=== PATIENT | female | born 1930 | race African-American/Black ===

== ENCOUNTER 2017-07-19 11:54 | Inpatient (IN) ==
[2017-07-19] MEDS ORDERED: hydrALAZINE 20 MG/1 ML VIAL ONE (12:05)
[2017-07-19] MEDS ORDERED: SODIUM CHLORIDE 0.9% 1,000 ML IV STA (12:20)
[2017-07-19 12:27] LABS: ABG Base Excess -4.5 MMOL/L (-2.5-2.5); ABG HCO3 20.7 MMOL/L (20-26); ABG Oxygen Saturation 98.6 % (95-100); ABG PCO2 42.5 MM HG (35-48); ABG PH 7.314 (7.35-7.45); ABG TCO2 19.3 MMOL/L (23-27)
[2017-07-19 12:29] LABS: Basophils % 0.1 % (0.0-0.8); Hematocrit 36.5 VOL% (35.7-47.0); Hemoglobin 12.5 GM/DL (12.0-16.0); Immature Granulocytes % 0.6 %; Immature Granulocytes Absolute 0.11 #; Lymphocytes # 1.4 10*3/uL (1.4-4.0); Lymphocytes % 7.3 % (21.3-54.2); Mean Corpuscular HGB Conc 34.2 GM/DL (32-36); Mean Corpuscular Hemoglobin 32 PG (27-34); Mean Corpuscular Volume 94.3 FL (87-102); Mean Platelet Volume 12.6 FL (9.6-12.0); Monocytes # 1.2 10*3/uL (0.11-0.8); Neutrophils # 16.7 10*3/uL (1.4-7.4); Platelet Count 182 T/CUMM (130-400); Red Blood Count 3.87 MC/CUMM (3.8-5.5); Red Cell Distribution Width 12.3 % (9.3-17.3); White Blood Count 19.4 T/CUMM (4-12)
[2017-07-19 12:40] LABS: PT Patient Result 10.7 SECS
[2017-07-19] MEDS ORDERED: hydrALAZINE 20 MG/1 ML VIAL IV STA ×2 (12:41→12:44)
[2017-07-19 12:48] LABS: Band Neutrophils 1 % (0-10); Lymphocytes 5 % (20-55); Segmented Neutrophils 90 % (50-85); Total Cells Counted 100
[2017-07-19 12:59] LABS: Albumin 2.9 G/DL (3.4-5.0); Bilirubin,Total 0.6 MG/DL (0.2-1.0); Calcium 8.5 MG/DL (8.5-10.1); Osmolality,Calculated 316.7 MOS/KG (273-304); Potassium 3.2 MMOL/L (3.5-5.1); Thyroid Stimulating Hormone 1.12 uIU/ml (0.358-3.74); Total Protein 7.3 G/DL (6.4-8.3)
[2017-07-19 13:08] LABS: Apearance,Urine Slightly Hazy (Clear); Glucose,Urine (UA) 150 mg/dL (Negative); Urine Color Yellow (Yellow); Urine Specific Gravity 1.005 (1.001-1.035)
[2017-07-19 13:09] LABS: Bilirubin,Urine Negative (Negative); Blood, Urine Small mg/dL (Negative); Ketones,Urine Negative (Negative); Nitrite,Urine Negative (Negative); Urine Urobilinogen 0.2 EU/DL (0.2-1.0)
[2017-07-19 13:25] LABS: WBC,Urine Rare /HPF (0-6)
[2017-07-19 13:26] LABS: Amorphous Crystals,Urine Few /HPF (Few)
[2017-07-19 13:28] LABS: Protein,Urine >=500 MG/DL
[2017-07-19 13:33] LABS: Barbiturates Screen,Urine Negative (Negative); Benzodiazepines Screen,Urine Positive (Negative); Cannabinoid Screen,Urine Negative (Negative); Opiate Screen,Urine Negative (Negative); Phencyclidine Screen,Urine Negative (Negative)
[2017-07-19] MEDS ORDERED: INSULIN REGULAR 100 UNIT/ML IV STA (13:41)
[2017-07-19] MEDS ORDERED: INSULIN REGULAR 100 UNIT/ML ONE (13:45)
[2017-07-19] MEDS ORDERED: ALBUTEROL 2.5 MG/3 ML NEB RESP TX PRN (15:40)
[2017-07-19] MEDS ORDERED: MAGNESIUM SULF RIDER 4 GM in PREMIX 1 EACH IV PRN (15:46)
[2017-07-19] MEDS ORDERED: MAGNESIUM SULF RIDER 2 GM in PREMIX 1 EACH IV PRN (15:46)
[2017-07-19] MEDS ORDERED: DEXTROSE 50% 25 GM/50 ML VIAL IV PRN ×2 (15:46)
[2017-07-19] MEDS ORDERED: INSULIN REGULAR 100 UNIT/ML IV ONE (15:53)
[2017-07-19] MEDS ORDERED: SODIUM CHLORIDE 0.9% IV PRN (15:53)
[2017-07-19] MEDS ORDERED: SODIUM BICARB INJ 100 MEQ in STERILE WATER INJ 400 ML IV PRN (15:53)
[2017-07-19] MEDS ORDERED: SODIUM PHOSPHATE IV PRN (15:53)
[2017-07-19] MEDS ORDERED: INSULIN REGULAR DRIP 100 ML IV SCH (16:00)
[2017-07-19] MEDS ORDERED: PANTOPRAZOLE 40 MG VIAL IV SCH (16:00)
[2017-07-19 16:07] LABS: ABG Base Excess -4.6 MMOL/L (-2.5-2.5); ABG HCO3 19.2 MMOL/L (20-26); ABG Oxygen Saturation 98.7 % (95-100); ABG PCO2 31.9 MM HG (35-48); ABG PH 7.398 (7.35-7.45); ABG PO2 159.7 MM HG (80-95); ABG TCO2 20.2 MMOL/L (23-27); Allen Test Positive
[2017-07-19 16:16] LABS: Risk Ratio 3.55; VLDL CHOLESTEROL 29.2 MG/DL
[2017-07-19] MEDS: niCARdipine INJ 25 MG in SODIUM CHLORIDE 0.9% 240 ML IV PRN (17:40)
[2017-07-19] MEDS: CLINDAMYCIN INJ 600 MG in PREMIX 1 EACH IV SCH (18:00)
[2017-07-19] MEDS ORDERED: cefTRIAXone 2,000 MG in SYRINGE 1 EACH IV SCH (18:00)
[2017-07-19 18:02] LABS: Calcium 8.5 MG/DL (8.5-10.1); Osmolality,Calculated 317.4 MOS/KG (273-304); Potassium 3.1 MMOL/L (3.5-5.1)
[2017-07-19] MEDS: POTASSIUM CHLORIDE RIDER 10 MEQ in PREMIX 1 EACH IV PRN ×4 (18:03→21:08)
[2017-07-19 18:04] LABS: Lactic Acid 1.5 MMOL/L (0.4-2.0)
[2017-07-19 18:28] LABS: CKMB % 0.6 %; Troponin I Only 0.915 NG/ML (0.00-0.045)
[2017-07-19] MEDS ORDERED: SODIUM CHLOR 0.9% KCL 20 MEQ 20 MEQ/1,000 ML BAG IV SCH (20:00)
[2017-07-19] MEDS ORDERED: POTASSIUM CHLORIDE 20 MEQ/15 ML UDCUP PO ONE (20:00)
[2017-07-19 21:13] LABS: Calcium 8.5 MG/DL (8.5-10.1); Osmolality,Calculated 313.1 MOS/KG (273-304); Potassium 3.7 MMOL/L (3.5-5.1)
[2017-07-19 21:30] LABS: CKMB % 0.6 %; Troponin I Only 0.944 NG/ML (0.00-0.045)
[2017-07-20] MEDS ORDERED: POTASSIUM CHLORIDE INJ 40 MEQ in SODIUM CHLORIDE 0.9% 380 ML IV SCH (01:00)
[2017-07-20] MEDS: CLINDAMYCIN INJ 600 MG in PREMIX 1 EACH IV SCH ×2 (01:18→10:59)
[2017-07-20 01:53] LABS: Calcium 8.7 MG/DL (8.5-10.1); Osmolality,Calculated 307.7 MOS/KG (273-304); Potassium 3.3 MMOL/L (3.5-5.1)
[2017-07-20 04:14] LABS: ABG Base Excess -1.4 MMOL/L (-2.5-2.5); ABG HCO3 19.7 MMOL/L (20-26); ABG Oxygen Saturation 92.4 % (95-100); ABG PH 7.532 (7.35-7.45); ABG PO2 61.6 MM HG (80-95); ABG TCO2 20.4 MMOL/L (23-27)
[2017-07-20 04:22] LABS: Basophils % 0.2 % (0.0-0.8); Hematocrit 35.8 VOL% (35.7-47.0); Hemoglobin 12.1 GM/DL (12.0-16.0); Immature Granulocytes % 0.5 %; Immature Granulocytes Absolute 0.09 #; Lymphocytes # 2.1 10*3/uL (1.4-4.0); Lymphocytes % 11.1 % (21.3-54.2); Mean Corpuscular HGB Conc 33.8 GM/DL (32-36); Mean Corpuscular Hemoglobin 31 PG (27-34); Mean Corpuscular Volume 92.5 FL (87-102); Mean Platelet Volume 12.7 FL (9.6-12.0); Monocytes # 1.6 10*3/uL (0.11-0.8); Monocytes % 8.5 % (1.7-12.7); Neutrophils # 15.4 10*3/uL (1.4-7.4); Neutrophils % 79.7 % (38.7-73.9); Platelet Count 190 T/CUMM (130-400); Red Blood Count 3.87 MC/CUMM (3.8-5.5); Red Cell Distribution Width 12.2 % (9.3-17.3); White Blood Count 19.3 T/CUMM (4-12)
[2017-07-20] MEDS ORDERED: DEXT 5% NACL 0.9% KCL 20 MEQ 20 MEQ/1,000 ML BAG IV SCH (04:30)
[2017-07-20 04:56] LABS: Calcium 8.6 MG/DL (8.5-10.1); Osmolality,Calculated 305.6 MOS/KG (273-304); Potassium 3.9 MMOL/L (3.5-5.1)
[2017-07-20 05:01] LABS: Alanine Aminotransferase 49 U/L (13-56); Albumin 2.2 G/DL (3.4-5.0); Alkaline Phosphatase 97 U/L (45-117); Aspartate Amino Transferase 95 U/L (0-37); Bilirubin,Direct < 0.100 MG/DL (0.0-0.20); Bilirubin,Indirect 0.7 MG/DL (0.0-1.0); Total Protein 6.3 G/DL (6.4-8.3)
[2017-07-20] MEDS: niCARdipine INJ 25 MG in SODIUM CHLORIDE 0.9% 240 ML IV PRN (05:07)
[2017-07-20 05:25] LABS: Band Neutrophils 3 % (0-10); Lymphocytes 9 % (20-55); Segmented Neutrophils 82 % (50-85); Total Cells Counted 100
[2017-07-20 05:26] LABS: Giant Platelets Few; Hypochromasia 1+; Platelet Estimate Normal
[2017-07-20 06:11] LABS: CKMB % 0.6 %; Troponin I Only 0.784 NG/ML (0.00-0.045)
[2017-07-20 06:33] LABS: Calcium 8.7 MG/DL (8.5-10.1); Osmolality,Calculated 302.6 MOS/KG (273-304); Potassium 4.7 MMOL/L (3.5-5.1)
[2017-07-20] MEDS ORDERED: SODIUM BICARB INJ 100 MEQ in DEXTROSE 5% 1,000 ML IV SCH (08:00)
[2017-07-20] MEDS ORDERED: VALPROIC ACID INJ 500 MG in SODIUM CHLORIDE 0.9% 100 ML IV SCH (09:00)
[2017-07-20] MEDS ORDERED: LACOSAMIDE INJ 150 MG in SODIUM CHLORIDE 0.9% 50 ML IV SCH (10:00)
[2017-07-20 11:16] LABS: Calcium 8.3 MG/DL (8.5-10.1); Osmolality,Calculated 304.4 MOS/KG (273-304); Potassium 3.4 MMOL/L (3.5-5.1)
[2017-07-20 12:13] VITALS: BP 160/57
[2017-07-20] MEDS ORDERED: ALBUTEROL/IPRATROPIUM 3 ML NEB RESP TX SCH (13:00)
[2017-07-21] MEDS ORDERED: ASPIRIN EC 81 MG TABLET PO SCH (09:00)
== END 2017-07-20 11:50 | disposition hospice, home (50) | DRG 637 ==
LOC: EDUNIT# → N.ED 11:54 → N.EDINP 14:44 → N.ICU 16:54
PROVIDERS: ADMIT Hospitalist; ATTEND Hospitalist

== ENCOUNTER 2017-12-03 16:43 | Inpatient (IN) ==
[2017-12-03 18:46] LABS: Basophils % 0.3 % (0.0-0.8); Eosinophils # 0.1 10*3/uL (0.0-0.87); Eosinophils % 1.8 % (0.00-10.9); Hematocrit 35.5 VOL% (35.7-47.0); Hemoglobin 10.8 GM/DL (12.0-16.0); Immature Granulocytes % 0.7 %; Immature Granulocytes Absolute 0.05 #; Lymphocytes # 2.4 10*3/uL (1.4-4.0); Lymphocytes % 32.9 % (21.3-54.2); Mean Corpuscular HGB Conc 30.4 GM/DL (32-36); Mean Corpuscular Hemoglobin 31 PG (27-34); Mean Corpuscular Volume 102.6 FL (87-102); Monocytes # 0.6 10*3/uL (0.11-0.8); Monocytes % 8.6 % (1.7-12.7); Neutrophils # 4.1 10*3/uL (1.4-7.4); Neutrophils % 55.7 % (38.7-73.9); Platelet Count 214 T/CUMM (130-400); Red Blood Count 3.46 MC/CUMM (3.8-5.5); Red Cell Distribution Width 13.6 % (9.3-17.3); White Blood Count 7.4 T/CUMM (4-12)
[2017-12-03 19:25] LABS: Alanine Aminotransferase 19 U/L (13-56); Albumin 2.9 G/DL (3.4-5.0); Alkaline Phosphatase 96 U/L (45-117); Aspartate Amino Transferase 19 U/L (0-37); Bilirubin,Total < 0.39 MG/DL (0.2-1.0); Blood Urea Nitrogen 71 MG/DL (7-18); Calcium 9.4 MG/DL (8.5-10.1); Glucose 229 MG/DL (74-106); Osmolality,Calculated 334.3 MOS/KG (273-304); Potassium 4.4 MMOL/L (3.5-5.1); Sodium 155 MMOL/L (136-145); Total Protein 7.8 G/DL (6.4-8.3)
[2017-12-03] MEDS: SODIUM CHLORIDE 0.45% 1,000 ML IV SCH (21:15)
[2017-12-03] MEDS: ENOXAPARIN 30 MG/0.3 ML SYRINGE SUBCUT SCH (21:32)
[2017-12-03] MEDS: ONDANSETRON 4 MG/2 ML VIAL IV PRN (21:33)
[2017-12-03] MEDS ORDERED: DEXTROSE 50% 25 GM/50 ML VIAL IV PRN (21:55)
[2017-12-03] MEDS ORDERED: GLUCAGON 1 MG VIAL IM PRN (21:55)
[2017-12-03] MEDS: INSULIN REGULAR 100 UNIT/ML SUBCUT SCH (22:30)
[2017-12-04 05:34] LABS: Basophils % 0.2 % (0.0-0.8); Eosinophils # 0.2 10*3/uL (0.0-0.87); Hematocrit 31.5 VOL% (35.7-47.0); Hemoglobin 9.3 GM/DL (12.0-16.0); Immature Granulocytes % 0.8 %; Immature Granulocytes Absolute 0.05 #; Lymphocytes # 2.3 10*3/uL (1.4-4.0); Lymphocytes % 33.9 % (21.3-54.2); Mean Corpuscular HGB Conc 29.5 GM/DL (32-36); Mean Corpuscular Hemoglobin 30 PG (27-34); Mean Corpuscular Volume 102.6 FL (87-102); Monocytes # 0.6 10*3/uL (0.11-0.8); Monocytes % 9.6 % (1.7-12.7); Neutrophils # 3.5 10*3/uL (1.4-7.4); Neutrophils % 52.5 % (38.7-73.9); Platelet Count 196 T/CUMM (130-400); Red Blood Count 3.07 MC/CUMM (3.8-5.5); Red Cell Distribution Width 13.9 % (9.3-17.3); White Blood Count 6.7 T/CUMM (4-12)
[2017-12-04] MEDS: SODIUM CHLORIDE 0.45% 1,000 ML IV SCH ×2 (06:04→16:12)
[2017-12-04 06:09] LABS: Albumin 2.5 G/DL (3.4-5.0); Bilirubin,Total 0.5 MG/DL (0.2-1.0); Calcium 9.7 MG/DL (8.5-10.1); Osmolality,Calculated 324.4 MOS/KG (273-304); Potassium 3.9 MMOL/L (3.5-5.1); Total Protein 7.4 G/DL (6.4-8.3)
[2017-12-04] MEDS: INSULIN REGULAR 100 UNIT/ML SUBCUT SCH ×4 (07:59→20:51)
[2017-12-04] MEDS: CARVEDILOL 6.25 MG TABLET NG SCH ×2 (09:30→17:27)
[2017-12-04] MEDS: DONEPEZIL 5 MG TABLET PO SCH (09:30)
[2017-12-04] MEDS: CITALOPRAM 20 MG TABLET PEG SCH (09:30)
[2017-12-04] MEDS: cefTRIAXone 1,000 MG in SYRINGE 1 EACH IV SCH (12:19)
[2017-12-04] MEDS: CLINDAMYCIN INJ 600 MG in PREMIX 1 EACH IV SCH ×2 (12:19→20:43)
[2017-12-04] MEDS: AZITHROMYCIN INJ 500 MG in SODIUM CHLORIDE 0.9% 250 ML IV SCH (13:29)
[2017-12-04 18:04] LABS: Apearance,Urine CLOUDY (Clear); Bilirubin,Urine Negative (Negative); Blood, Urine Negative (Negative); Glucose,Urine (UA) Negative (Negative); Ketones,Urine Negative (Negative); Nitrite,Urine Negative (Negative); Protein,Urine 100 MG/DL; RBC,Urine 3 /HPF (0-4); Urine Color Yellow (Yellow); Urine Specific Gravity 1.012 (1.001-1.035); Urine Urobilinogen < 2.0 EU/DL (0.2-1.0); WBC,Urine 154 /HPF (0-6)
[2017-12-04] MEDS: ENOXAPARIN 30 MG/0.3 ML SYRINGE SUBCUT SCH (20:50)
[2017-12-05] MEDS: SODIUM CHLORIDE 0.45% 1,000 ML IV SCH ×3 (00:30→18:35)
[2017-12-05 05:29] LABS: Basophils % 0.1 % (0.0-0.8); Eosinophils # 0.2 10*3/uL (0.0-0.87); Eosinophils % 1.7 % (0.00-10.9); Hematocrit 26.8 VOL% (35.7-47.0); Hemoglobin 8.5 GM/DL (12.0-16.0); Immature Granulocytes % 1.6 %; Immature Granulocytes Absolute 0.14 #; Lymphocytes # 3.1 10*3/uL (1.4-4.0); Mean Corpuscular HGB Conc 31.7 GM/DL (32-36); Mean Corpuscular Hemoglobin 31 PG (27-34); Mean Corpuscular Volume 96.8 FL (87-102); Mean Platelet Volume 12.5 FL (9.6-12.0); Monocytes # 0.7 10*3/uL (0.11-0.8); Monocytes % 8.3 % (1.7-12.7); Neutrophils # 4.6 10*3/uL (1.4-7.4); Neutrophils % 52.3 % (38.7-73.9); Platelet Count 178 T/CUMM (130-400); Red Blood Count 2.77 MC/CUMM (3.8-5.5); Red Cell Distribution Width 13.2 % (9.3-17.3); White Blood Count 8.7 T/CUMM (4-12)
[2017-12-05] MEDS: CLINDAMYCIN INJ 600 MG in PREMIX 1 EACH IV SCH ×2 (05:34→13:40)
[2017-12-05 05:54] LABS: Calcium 8.2 MG/DL (8.5-10.1); Osmolality,Calculated 300.3 MOS/KG (273-304); Potassium 3.6 MMOL/L (3.5-5.1)
[2017-12-05] MEDS: ONDANSETRON 4 MG/2 ML VIAL IV PRN ×2 (06:06→12:06)
[2017-12-05] MEDS: INSULIN REGULAR 100 UNIT/ML SUBCUT SCH ×4 (07:49→20:41)
[2017-12-05] MEDS: CARVEDILOL 6.25 MG TABLET NG SCH ×2 (07:50→17:31)
[2017-12-05] MEDS: DONEPEZIL 5 MG TABLET PO SCH (08:04)
[2017-12-05] MEDS: CITALOPRAM 20 MG TABLET PEG SCH (08:04)
[2017-12-05] MEDS: cefTRIAXone 1,000 MG in SYRINGE 1 EACH IV SCH (08:04)
[2017-12-05] MEDS: AZITHROMYCIN INJ 500 MG in SODIUM CHLORIDE 0.9% 250 ML IV SCH (08:05)
[2017-12-05] MEDS: ENOXAPARIN 30 MG/0.3 ML SYRINGE SUBCUT SCH (20:38)
[2017-12-06] MEDS: SODIUM CHLORIDE 0.45% 1,000 ML IV SCH ×3 (02:45→22:40)
[2017-12-06 06:45] LABS: Calcium 7.9 MG/DL (8.5-10.1); Osmolality,Calculated 294.4 MOS/KG (273-304); Potassium 3.7 MMOL/L (3.5-5.1)
[2017-12-06] MEDS: INSULIN REGULAR 100 UNIT/ML SUBCUT SCH ×4 (09:25→20:41)
[2017-12-06] MEDS: DONEPEZIL 5 MG TABLET PO SCH (09:26)
[2017-12-06] MEDS: CITALOPRAM 20 MG TABLET PEG SCH (09:26)
[2017-12-06] MEDS: CARVEDILOL 6.25 MG TABLET NG SCH ×2 (09:26→16:54)
[2017-12-06] MEDS: AZITHROMYCIN INJ 500 MG in SODIUM CHLORIDE 0.9% 250 ML IV SCH (09:27)
[2017-12-06] MEDS: cefTRIAXone 2,000 MG in SYRINGE 1 EACH IV SCH (09:27)
[2017-12-06] MEDS: ENOXAPARIN 30 MG/0.3 ML SYRINGE SUBCUT SCH (20:05)
[2017-12-07] MEDS: SODIUM CHLORIDE 0.45% 1,000 ML IV SCH ×2 (07:07→19:32)
[2017-12-07] MEDS: CITALOPRAM 20 MG TABLET PEG SCH (09:54)
[2017-12-07] MEDS: CARVEDILOL 6.25 MG TABLET NG SCH ×2 (09:54→18:20)
[2017-12-07] MEDS: AZITHROMYCIN INJ 500 MG in SODIUM CHLORIDE 0.9% 250 ML IV SCH (09:54)
[2017-12-07] MEDS: DONEPEZIL 5 MG TABLET PO SCH (09:54)
[2017-12-07] MEDS: INSULIN REGULAR 100 UNIT/ML SUBCUT SCH ×4 (09:55→21:35)
[2017-12-07] MEDS: cefTRIAXone 2,000 MG in SYRINGE 1 EACH IV SCH (09:55)
[2017-12-07] MEDS: ONDANSETRON 4 MG/2 ML VIAL IV PRN (12:32)
[2017-12-07] MEDS: ENOXAPARIN 30 MG/0.3 ML SYRINGE SUBCUT SCH (20:15)
[2017-12-08] MEDS: SODIUM CHLORIDE 0.45% 1,000 ML IV SCH ×3 (03:35→15:56)
[2017-12-08] MEDS: INSULIN REGULAR 100 UNIT/ML SUBCUT SCH ×4 (08:25→20:36)
[2017-12-08] MEDS: DONEPEZIL 5 MG TABLET PO SCH (09:39)
[2017-12-08] MEDS: CARVEDILOL 6.25 MG TABLET NG SCH ×2 (09:39→16:46)
[2017-12-08] MEDS: CITALOPRAM 20 MG TABLET PEG SCH (09:39)
[2017-12-08] MEDS: AZITHROMYCIN INJ 500 MG in SODIUM CHLORIDE 0.9% 250 ML IV SCH (09:40)
[2017-12-08] MEDS: cefTRIAXone 2,000 MG in SYRINGE 1 EACH IV SCH (10:52)
[2017-12-08] MEDS: ENOXAPARIN 30 MG/0.3 ML SYRINGE SUBCUT SCH (20:36)
[2017-12-09] MEDS: SODIUM CHLORIDE 0.45% 1,000 ML IV SCH ×3 (00:03→23:26)
[2017-12-09] MEDS: INSULIN REGULAR 100 UNIT/ML SUBCUT SCH ×4 (07:27→20:41)
[2017-12-09] MEDS: AZITHROMYCIN INJ 500 MG in SODIUM CHLORIDE 0.9% 250 ML IV SCH (09:15)
[2017-12-09] MEDS: CITALOPRAM 20 MG TABLET PEG SCH (09:23)
[2017-12-09] MEDS: CARVEDILOL 6.25 MG TABLET NG SCH ×2 (09:23→17:36)
[2017-12-09] MEDS: DONEPEZIL 5 MG TABLET PO SCH (09:24)
[2017-12-09 09:50] LABS: Basophils % 0.1 % (0.0-0.8); Eosinophils # 0.3 10*3/uL (0.0-0.87); Eosinophils % 4.1 % (0.00-10.9); Hematocrit 24.4 VOL% (35.7-47.0); Hemoglobin 7.7 GM/DL (12.0-16.0); Immature Granulocytes % 1.1 %; Immature Granulocytes Absolute 0.08 #; Lymphocytes # 2.1 10*3/uL (1.4-4.0); Lymphocytes % 29.9 % (21.3-54.2); Mean Corpuscular HGB Conc 31.6 GM/DL (32-36); Mean Corpuscular Hemoglobin 31 PG (27-34); Mean Corpuscular Volume 98.4 FL (87-102); Mean Platelet Volume 12.6 FL (9.6-12.0); Monocytes # 0.6 10*3/uL (0.11-0.8); Monocytes % 7.7 % (1.7-12.7); Neutrophils # 4.1 10*3/uL (1.4-7.4); Neutrophils % 57.1 % (38.7-73.9); Platelet Count 158 T/CUMM (130-400); Red Blood Count 2.48 MC/CUMM (3.8-5.5); Red Cell Distribution Width 13.3 % (9.3-17.3); White Blood Count 7.2 T/CUMM (4-12)
[2017-12-09 10:00] LABS: INR 0.9; PT Patient Result 9.5 SECS
[2017-12-09 10:15] LABS: Calcium 8.2 MG/DL (8.5-10.1); Osmolality,Calculated 287.5 MOS/KG (273-304); Potassium 4.5 MMOL/L (3.5-5.1); Prealbumin 12.7 MG/DL (20-40)
[2017-12-09] MEDS: ONDANSETRON 4 MG/2 ML VIAL IV PRN (10:19)
[2017-12-09] MEDS: cefTRIAXone 2,000 MG in SYRINGE 1 EACH IV SCH (10:19)
[2017-12-09] MEDS ORDERED: SODIUM CHLORIDE 0.9% 1,000 ML IV PRN (12:16)
[2017-12-10] MEDS: SODIUM CHLORIDE 0.45% 1,000 ML IV SCH ×2 (01:16→03:34)
[2017-12-10 04:58] LABS: Basophils % 0.1 % (0.0-0.8); Eosinophils # 0.3 10*3/uL (0.0-0.87); Eosinophils % 2.4 % (0.00-10.9); Hematocrit 32.7 VOL% (35.7-47.0); Hemoglobin 10.8 GM/DL (12.0-16.0); Immature Granulocytes % 0.7 %; Immature Granulocytes Absolute 0.07 #; Lymphocytes % 19.2 % (21.3-54.2); Mean Corpuscular Hemoglobin 31 PG (27-34); Mean Corpuscular Volume 93.4 FL (87-102); Monocytes # 0.7 10*3/uL (0.11-0.8); Monocytes % 7.2 % (1.7-12.7); Neutrophils # 7.3 10*3/uL (1.4-7.4); Neutrophils % 70.4 % (38.7-73.9); Platelet Count 154 T/CUMM (130-400); Red Cell Distribution Width 14.6 % (9.3-17.3); White Blood Count 10.3 T/CUMM (4-12)
[2017-12-10 05:25] LABS: Calcium 8.2 MG/DL (8.5-10.1); Osmolality,Calculated 285.5 MOS/KG (273-304); Potassium 4.5 MMOL/L (3.5-5.1)
[2017-12-10 05:31] LABS: Eosinophils 2 % (0-10); Hypochromasia 1+; Lymphocytes 17 % (20-55); Nucleated Red Blood Cells 1 (0-5); Platelet Estimate Normal; Segmented Neutrophils 75 % (50-85); Total Cells Counted 100
[2017-12-10] MEDS ORDERED: ZINC OXIDE PASTE 113 GM TUBE TOP PRN (05:53)
[2017-12-10] MEDS: INSULIN REGULAR 100 UNIT/ML SUBCUT SCH ×2 (09:50→12:09)
[2017-12-10] MEDS: DONEPEZIL 5 MG TABLET PO SCH (10:44)
[2017-12-10] MEDS: CITALOPRAM 20 MG TABLET PEG SCH (10:44)
[2017-12-10] MEDS: CARVEDILOL 6.25 MG TABLET NG SCH (10:44)
[2017-12-10] MEDS: cefTRIAXone 2,000 MG in SYRINGE 1 EACH IV SCH (10:45)
[2017-12-10 11:40] VITALS: BP 176/76
== END 2017-12-10 13:23 | disposition home health service (06) | DRG 683 ==
LOC: N.ED 16:43 → N.EDINP 20:31 → SUATTDRO 20:32 → N.2E 21:26
PROVIDERS: ADMIT Internal Medicine

== ENCOUNTER 2019-06-02 23:55 | Inpatient (IN) ==
[2019-06-03] MEDS ORDERED: SODIUM CHLORIDE 0.9% 500 ML IV STA (00:13)
[2019-06-03] MEDS ORDERED: AMPICILLIN/SULBACTAM 3,000 MG in SODIUM CHLORIDE 0.9% 100 ML IV STA (00:13)
[2019-06-03] MEDS ORDERED: ALBUTEROL NEB SOLN 5 MG/ML 20 ML/BOTTLE CONT NEB SCH (00:30)
[2019-06-03] MEDS ORDERED: AMPICILLIN/SULBACTAM 3,000 MG VIAL ONE (00:35)
[2019-06-03 01:29] LABS: Immature Granulocytes % 4.5 %; Immature Granulocytes Absolute 0.25 #; Lymphocytes # 1.3 10*3/uL (1.4-4.0); Mean Corpuscular Volume 112.4 FL (87-102); Mean Platelet Volume 12.5 FL (9.6-12.0); NRBC # 0.06 10*3/uL; Neutrophils % 66.5 % (38.7-73.9); Platelet Count 187 T/CUMM (130-400); Red Blood Count 1.78 MC/CUMM (3.8-5.5); Red Cell Distribution Width 13.8 % (9.3-17.3); White Blood Count 5.5 T/CUMM (4-12)
[2019-06-03 01:35] LABS: Hemoglobin 5.8 GM/DL (12.0-16.0)
[2019-06-03 01:49] LABS: Alanine Aminotransferase 49 U/L (13-56); Albumin 1.9 G/DL (3.4-5.0); Alkaline Phosphatase 68 U/L (45-117); Aspartate Amino Transferase 49 U/L (0-37); Bilirubin,Total < 0.39 MG/DL (0.2-1.0); Blood Urea Nitrogen 182 MG/DL (7-18); Calcium 9.8 MG/DL (8.5-10.1); Estimated Glom Filtration Rate 7 ML/MIN; Glucose 269 MG/DL (74-106)
[2019-06-03 02:07] LABS: Hematocrit 18.9 VOL% (35.7-47.0); Immature Granulocytes Absolute 0.26 #; Lymphocytes # 1.8 10*3/uL (1.4-4.0); Lymphocytes % 28.3 % (21.3-54.2); Mean Corpuscular HGB Conc 29.6 GM/DL (32-36); Mean Corpuscular Volume 113.2 FL (87-102); Mean Platelet Volume 12.9 FL (9.6-12.0); Monocytes % 6.6 % (1.7-12.7); NRBC # 0.06 10*3/uL; Neutrophils % 61.1 % (38.7-73.9); Platelet Count 184 T/CUMM (130-400); Red Blood Count 1.67 MC/CUMM (3.8-5.5); Red Cell Distribution Width 13.7 % (9.3-17.3); White Blood Count 6.5 T/CUMM (4-12)
[2019-06-03 02:11] LABS: Hemoglobin 5.6 GM/DL (12.0-16.0)
[2019-06-03 02:18] LABS: Apearance,Urine Slightly Hazy (Clear); Bacteria,Urine Occasional /HPF (Few); Bilirubin,Urine Negative (Negative); Blood, Urine Negative (Negative); Glucose,Urine (UA) Negative (Negative); Hyaline Casts,Urine 3 /LPF (0-3); Ketones,Urine Negative (Negative); Mucus,Urine Occasional /LPF (Occasional); Nitrite,Urine Negative (Negative); Protein,Urine 100 MG/DL; RBC,Urine 1 /HPF (0-4); Uric Acid Crystals,Urine Occasional /HPF (<1); Urine Color Yellow (Yellow); Urine Specific Gravity 1.012 (1.001-1.035); Urine Urobilinogen < 2.0 EU/DL (0.2-1.0); WBC,Urine 4 /HPF (0-6)
[2019-06-03] MEDS ORDERED: SODIUM CHLORIDE 0.9% 1,000 ML IV STA (02:30)
[2019-06-03 03:46] LABS: Band Neutrophils 2 % (0-10); Lymphocytes 23 % (20-55); Segmented Neutrophils 68 % (50-85); Total Cells Counted 100
[2019-06-03 03:47] LABS: Anisocytosis 1+; Platelet Estimate Normal
[2019-06-03 03:50] LABS: Band Neutrophils 1 % (0-10); Lymphocytes 27 % (20-55); Myelocytes 1 %; Nucleated Red Blood Cells 1 (0-5); Segmented Neutrophils 64 % (50-85); Total Cells Counted 100
[2019-06-03 03:51] LABS: Anisocytosis 1+; Platelet Estimate Normal
[2019-06-03 04:28] LABS: INR 0.9; PT Patient Result 9.8 SECS (9.6-12.2); Partial Thromboplastin Time 28.7 SECS (20.8-36.0)
[2019-06-03] MEDS ORDERED: ACETAMINOPHEN 325 MG TABLET PEG PRN (05:54)
[2019-06-03] MEDS ORDERED: GLUCAGON 1 MG VIAL IM PRN (05:54)
[2019-06-03] MEDS ORDERED: SODIUM CHLORIDE 0.9% 1,000 ML IV PRN (05:54)
[2019-06-03] MEDS ORDERED: DEXTROSE 50% 25 GM/50 ML SYRINGE IV PRN (05:54)
[2019-06-03] MEDS ORDERED: hydrALAZINE 20 MG/1 ML VIAL IV PRN (05:54)
[2019-06-03] MEDS ORDERED: ONDANSETRON 4 MG/2 ML VIAL IV PRN (05:54)
[2019-06-03] MEDS: INSULIN LISPRO 100 UNIT/ML SUBCUT SCH ×3 (06:47→17:53)
[2019-06-03] MEDS: SODIUM CHLORIDE 0.9% 1,000 ML IV SCH ×2 (06:47→16:45)
[2019-06-03] MEDS: cefTRIAXone 1,000 MG in SYRINGE 1 EACH IV SCH (06:47)
[2019-06-03] MEDS: PANTOPRAZOLE 40 MG VIAL IV SCH ×2 (08:33→20:23)
[2019-06-03 15:22] LABS: Hemoglobin 8.2 GM/DL (12.0-16.0)
[2019-06-03 15:44] LABS: Calcium 9.3 MG/DL (8.5-10.1); Osmolality,Calculated 360.2 MOS/KG (273-304)
[2019-06-03] MEDS ORDERED: DEXTROSE 10% 250 ML BAG IV PRN (16:08)
[2019-06-03 18:05] LABS: Hematocrit 26.9 VOL% (35.7-47.0); Hemoglobin 8.3 GM/DL (12.0-16.0)
[2019-06-03] MEDS: SODIUM BICARB INJ 50 MEQ in SODIUM CHLORIDE 0.45% 1,000 ML IV SCH (20:23)
[2019-06-03 23:48] LABS: Hematocrit 26.6 VOL% (35.7-47.0); Hemoglobin 8.3 GM/DL (12.0-16.0)
[2019-06-04] MEDS: INSULIN LISPRO 100 UNIT/ML SUBCUT SCH ×3 (00:30→13:55)
[2019-06-04] MEDS: SODIUM BICARB INJ 50 MEQ in SODIUM CHLORIDE 0.45% 1,000 ML IV SCH ×3 (01:02→14:06)
[2019-06-04] MEDS: cefTRIAXone 1,000 MG in SYRINGE 1 EACH IV SCH (05:58)
[2019-06-04 06:16] LABS: Basophils % 0.1 % (0.0-0.8); Eosinophils % 0.1 % (0.00-10.9); Hematocrit 25.3 VOL% (35.7-47.0); Hemoglobin 7.9 GM/DL (12.0-16.0); Immature Granulocytes % 4.1 %; Immature Granulocytes Absolute 0.32 #; Lymphocytes # 1.5 10*3/uL (1.4-4.0); Mean Corpuscular HGB Conc 31.2 GM/DL (32-36); Mean Corpuscular Volume 99.6 FL (87-102); Mean Platelet Volume 12.7 FL (9.6-12.0); Monocytes % 4.5 % (1.7-12.7); NRBC # 0.08 10*3/uL; Neutrophils % 72.2 % (38.7-73.9); Platelet Count 166 T/CUMM (130-400); Red Blood Count 2.54 MC/CUMM (3.8-5.5); Red Cell Distribution Width 19.3 % (9.3-17.3); White Blood Count 7.9 T/CUMM (4-12)
[2019-06-04 06:41] LABS: Calcium 9.3 MG/DL (8.5-10.1); Osmolality,Calculated 357.3 MOS/KG (273-304)
[2019-06-04 06:44] LABS: Prealbumin 13.3 MG/DL (20-40)
[2019-06-04 06:47] LABS: Band Neutrophils 1 % (0-10); Eosinophils 1 % (0-10); Lymphocytes 17 % (20-55); Nucleated Red Blood Cells 4 (0-5); Platelet Estimate Adequate; Segmented Neutrophils 77 % (50-85); Total Cells Counted 100
[2019-06-04 06:48] LABS: Hypochromasia 1+
[2019-06-04] MEDS: PANTOPRAZOLE 40 MG VIAL IV SCH (08:25)
[2019-06-04] MEDS ORDERED: SODIUM CHLORIDE 0.9% 1,000 ML IV PRN (09:15)
[2019-06-04 18:11] VITALS: BP 116/54
== END 2019-06-04 19:10 | disposition hospice, home (50) | DRG 811 ==
LOC: EDBD → EDUNIT# → N.ED 23:55 → N.EDINP 06-03 03:27 → SUATTDRO 06-03 03:27 → N.5E 06-03 05:14
PROVIDERS: ADMIT Emergency Medicine; ATTEND Internal Medicine